=== PATIENT | female | born 1960 | race Caucasian/White ===

== ENCOUNTER 2020-02-29 11:26 | Outpatient (CLI) | payer BC, SELFPAY ==
--- NOTE | 2020-02-29 08:45 | DI.RAD_ITS ---
EXAM: XR SHOULDER LT COMPLETE 2+V CLINICAL HISTORY: eval L shoulder pain, h/o surgery. TECHNIQUE: 2D digital imaging was performed. COMPARISON: No exams were available for comparison FINDINGS: BONES: No acute fracture is present. No bony destructive lesion is seen. Mild spurring is seen at th e greater tuberosity. JOINTS: No dislocation present. There is mild spurring at the AC joint and undersurface of the acromi on.The glenohumeral joint space is well maintained and shows no significant degenerative changes. SOFT TISSUE: Normal. No tendon or joint space calcifications are seen. IMPRESSION: Mild degenerative changes.. DATA REPOSITORY: RADIATION DOSE DELIVERED:
--- NOTE | 2020-02-29 08:45 | DI.RAD_ITS ---
EXAM: XR SHOULDER RT COMPLETE 2+V INDICATION: eval R shoulder pain, h/o surgery. COMPARISON: CR XR SHOULDER LT COMPLETE 2+V from 02/29/2020 TECHNIQUE: 2D digital imaging was performed. FINDINGS: Metallic anchors are noted in the humeral head related to previous rotator cuff repair. The humeral head is high riding, articulating with the undersurface of the acromion. There is significant spurr ing of the undersurface of the acromion and thinning of the acromion. There is spurring at the great er tuberosity as well as lesser tuberosity. There is there are degenerative changes of the glenohume ral joint with prominent spurring at the humeral head. The AC joint shows shows spurring at the acro mion.. IMPRESSION: Advanced degenerative changes and chronic rotator cuff tear. Previous surgery. DATA REPOSITORY: RADIATION DOSE DELIVERED:
== END 2020-02-29 11:46 ==
PROVIDERS: Visit Provider Student in an Organized Health Care Education/Training Program
DX: M25.512 Pain in left shoulder (principal); M25.511 Pain in right shoulder; M19.011 Primary osteoarthritis, right shoulder; M75.101 Unspecified rotator cuff tear or rupture of right shoulder, not specified as traumatic; M19.012 Primary osteoarthritis, left shoulder
CPT/HCPCS: 73030

== ENCOUNTER 2020-03-07 02:40 | Outpatient (CLI) | payer BC, SELFPAY ==
--- NOTE | 2020-03-07 11:20 | DI.MRI_ITS ---
EXAM: MR UPPER JOINT LT WO CLINICAL HISTORY: PAIN M25.512 PAIN LT SHOULDER. TECHNIQUE: Multiplanar multisequence MRI was performed. COMPARISON: CR XR SHOULDER RT COMPLETE 2+V from 02/29/2020 CR XR SHOULDER LT COMPLETE 2+V from 02/29/2020 FINDINGS: MR examination shoulder was performed according to the usual protocol. There is tiny quantity of fluid in the glenohumeral joint. There is a moderate-sized fluid collectio n in the subacromial subdeltoid bursa. Bones: Mild deformity of acromion, prior acromial spur removal indicated by history. Minimal undersu rface irregularity of the acromion, no gross impingement. Moderate hypertrophic change and abnormal signal at the acromioclavicular joint, minimal impingement on supraspinatus myotendinous junction reg ion. Mildly abnormal signal noted in greater tuberosity of the humerus adjacent to the supraspinatus footp rint, a small degenerative cyst is noted at this site. Articular cartilage: Mild to moderate thinning of glenohumeral articular cartilage noted. Glenoid la abdulkadir grossly intact by noncontrast criteria. Biceps tendon: Biceps tendon and anchor appear intact. Biceps tendon is normally placed in the bicip ital groove. Rotator cuff: Mildly abnormal signal in the distal supraspinatus, subscapularis, and infraspinatus te ndons consistent with tendinosis. Small focal undersurface tear at the lateral supraspinatus footpri nt, minimally displaced. No full-thickness tear or retraction of supraspinatus tendon. Rotator interval structures show normal signal. IMPRESSION: Mild tendinosis of supraspinatus, infraspinatus, and subscapularis tendon. Small lateral footprint s upraspinatus attachment tear, nondisplaced. Degenerative changes of the glenohumeral articular cartilage noted. Additional findings as described above. DATA REPOSITORY:
== END 2020-03-07 03:00 ==
PROVIDERS: Visit Provider Student in an Organized Health Care Education/Training Program
DX: M25.512 Pain in left shoulder (principal); M75.82 Other shoulder lesions, left shoulder; M75.102 Unspecified rotator cuff tear or rupture of left shoulder, not specified as traumatic; M25.412 Effusion, left shoulder; M19.012 Primary osteoarthritis, left shoulder
CPT/HCPCS: 73221

== ENCOUNTER 2020-08-12 08:34 | Outpatient (CLI) | payer BC, SELFPAY ==
[2020-08-14 10:49] LABS: SARS-CoV-2 RNA Not Detected (NotDetected); SARS-CoV-2 RNA Source Nasal/Nares
== END 2020-08-12 08:54 ==
PROVIDERS: Visit Provider Student in an Organized Health Care Education/Training Program
DX: Z11.59 Encounter for screening for other viral diseases (principal); Z01.818 Encounter for other preprocedural examination
CPT/HCPCS: U0003

== ENCOUNTER 2020-08-15 10:01 | Day surgery (SDC) | payer BC, SELFPAY ==
--- NOTE | 2020-07-25 14:02 | PDOC.ANES ---
Date of service: 07/25/20 Time of Service: 14:04 Anesthesia Note Report Anesthesia Note: Asked to review case by Eli for upcoming SHAHZAD. History of pulmonary fibrosis/SOB related to chemotherapy/radiation from Hodgkin lymphoma, CAD (60% LAD stenosis), and moderate aortic stenosis (JAYE 1.2 cm2) with mild AR and LVEF 69%. She [place] [facility] [place] (12 mg 0.75% bup, 1 attempt). Given that her cardiac and pulmonary issues have been stable, and she has had a recent SHAHZAD under spinal anesthesia without issue, she is an appropriate candidate for surgery at [facility].
--- NOTE | 2020-07-29 14:04 | PDOC.ANES ---
Date of service: 07/29/20 Time of Service: 14:04 Anesthesia Note Report Anesthesia Note: Request for chart review today from
--- NOTE | 2020-07-29 14:14 | PDOC.ANES ---
Date of service: 07/29/20 Time of Service: 14:14 Anesthesia Note Report Anesthesia Note: Request for preoperative anesthetic chart review by Dr. Fry on this patient for a date of surgery on 08/15/2020 due to a history of mitral valve prolapse and tachyarrhythmias. [place] [facility] [facility] charts I could not find her past cardiac history noted anywhere other than Dr. Fry's office note. No cardiovascular diagnostics such as ECHO or EKG were available either. Due to the lack of information I called the patient directly at her listed phone number. Per the patient she is seen by the cardiology group at [facility] and is seen annually by Dr. Rosa due to her mitral valve prolapse and issues with arrhythmias. The patient states she has been off of her heart medicine for four years now and stable. She is still seen and receives an annual echocardiogram. She reports that she is to be seen on 08/07/2020 for a preoperative cardiac consult with Dr. Rosa. The patient states she has had anesthesia before without cardiovascular problems, but does report a history of PONV. She stated that her during her last anesthetic they gave her a patch for antiemesis that worked well. I am assuming it was a scopolamine patch and will recommend it for the coming anesthetic. I am asking our preop nurse to reach out to Dr. Rosa's office to obtain the notes from the patients last visit and her most recent echocardiogram. I look forward to Dr. Rosa's consult.
--- NOTE | 2020-08-09 15:14 | PDOC.ANES ---
Date of service: 08/09/20 Time of Service: 15:14 Anesthesia Note Report Anesthesia Note: Received documentation from [facility] today from the patients August 07 visit. EF is 50-60%, MVP is present with mild mitral regurgitation. In the patients cardiologists opinion she is a good candidate for rotator cuff surgery. I feel that the patient is appropriate to continue based on this updated information.
[2020-08-15] VITALS (9 sets, daily range): BP systolic 83–120; BP diastolic 40–65; PULSE 68–84; RESP 12–18; TEMP 36.3–36.5; O2SAT 94–99
[2020-08-15] MEDS: Lactated Ringers 1,000 ML 100 ML IV (11:04)
[2020-08-15] MEDS: Scopolamine 1 MG/3 DAYS PATCH TD (11:13)
[2020-08-15] MEDS: ceFAZolin 2 GM/50 ML BAG IVPB (12:08)
[2020-08-15] MEDS: EPINEPHrine 1 MG/ML AMP pres-free (14:12)
[2020-08-15] MEDS: EPINEPHrine 30 MG/30 ML VIAL (14:12)
[2020-08-15] MEDS: Bupivacaine 0.25% Pres-Free 30 ML VIAL (14:12)
--- NOTE | 2020-08-15 15:02 | W.PM.DSUDISC ---
Discharge Plan Disposition Patient Disposition: HOME Condition: Stable Discharge Details Reason For Visit: Left shoulder surgery Attending Provider: Amandeep Fry Primary Care Provider: No,Local Home Meds and New Rx's Prescriptions: New aspirin 81 mg tablet,delayed release (DR/EC) 81 mg PO DAILY 14 Days Qty: 14 RF: 0 naproxen 250 mg tablet 250 - 500 mg PO BID PRN (Reason: Moderate pain or swelling) Qty: 60 RF: 0 ondansetron 4 mg tablet,disintegrating 4 mg PO Q6H PRN (Reason: nausea or vomiting) Qty: 5 RF: 0 oxycodone 5 mg tablet 5 - 10 mg PO Q4H PRN (Reason: moderate to severe pain) Qty: 22 RF: 0 Continued fluoxetine [Prozac] 20 mg capsule 20 mg PO DAILY RF: 0 albuterol sulfate 90 mcg/actuation aerosol powdr breath activated 1 inh IH ONCE RF: 0 fexofenadine 180 mg Tablet 180 mg PO DAILY RF: 0 cholecalciferol (vitamin D3) [Vitamin D3] 25 mcg (1,000 unit) Capsule 75 mcg PO DAILY RF: 0 lysine HCl 1,000 mg Tablet 3,000 mg PO BID RF: 0 Restasis 0.05 % Dropperette 1 drp OPHTHALMIC (EYE) Q12H RF: 0 Discontinued metaproterenol 650 mcg/actuation aerosol 650 mcg IH DAILY RF: 0 Discharge Instructions Additional Instructions: Surgery: Shoulder arthroscopy with rotator cuff repair, biceps tenodesis, extensive debridement, and subacromial decompression. Activity: You should keep your arm at your side in a neutral position at all times except for physical therapy. Do not try to lift or raise your arm using your own muscles. You should use the sling whenever you are out of the house. You may have to adjust the abduction pillow or remove it for comfort. At home it is best to remove the sling and rest the arm on a pillow at your side or support the operative side with your other hand. You may allow the arm to dangle at your side. A physical therapy prescription will be sent electronically to begin in 2-3 weeks. Prescriptions: Aspirin 81 mg take 1 daily to prevent a blood clot for 2 weeks Naproxen 250 mg take 1-2 every 12 hours with a meal as needed for moderate pain Oxycodone 5 mg take 1-2 every 4-6 hours as needed for severe pain You may use [id number] Tylenol (acetaminophen) as needed for mild pain. These pain medications may be taken all at once or in different combinations as needed. Ondansetron (Zofran) 4 mg take 1 orally dissolving tablet every 6 hours as needed for nausea or vomiting Also, recommend Colace (docusate) as a stool softener as surgery and pain medicine cause constipation. Dressings: Remove shoulder bandage after 3 days. Leave the sticky Steri-Strips in place until they fall off or remove them after you shower. Cover the incisions with Band-Aids or leave them open to air. The biceps bandage (inside upper arm) is glued on separately. You may leave this one on a few days longer if it is difficult to remove. There is also glue underneath this bandage that can be left in place until it peels off. You may shower after 5 days. Follow-up: 10-[address] Fry You may take off the leg compression stockings this evening at home. You may also leave them on a few days longer if you have a history of leg swelling or edema. Let us know right away if you develop any redness, drainage, fevers, chest pain, or trouble breathing. Do not drink alcohol or drive for at least 24 hours after anesthesia. Please call the office during business hours with any questions or concerns. Referrals: Amandeep Fry MD [ [facility] STAFF PHYSICIAN] - Discharge Orders Discharge Orders: Discharge Order (Routine); Ordered 08/15/20 Ordered By: Amandeep Fry DS: Diagnosis Discharge Diagnosis (1) Impingement syndrome, shoulder, left: Status: Acute (2) Arthritis of left acromioclavicular joint: Status: Acute (3) Tendinitis of long head of biceps brachii of left shoulder: Status: Acute (4) Bursitis of left shoulder: Status: Acute (5) Left rotator cuff tear: Status: Acute
--- NOTE | 2020-08-15 15:20 | ROE_ITS ---
Date of service: 08/15/20 Time of Service: 15:02 Operative Note Operative Note DATE OF PROCEDURE: 08/15/20 PRE-OP DIAGNOSIS: Left: 1. Rotator cuff tear 2. LHB tendinopathy 3. Bursitis 4. Impingement 5. AC joint arthritis POST-OP DIAGNOSIS: same PROCEDURE: Left: 1. Rotator cuff repair, CPT# 99465. This involved repair of the subscapularis and supraspinatus using anchors and sutures to reattach the rotator cuff back to the footprint of the lesser and greater tuberosity. 2. Open biceps tenodesis, CPT# 78516. This involved reattaching the long head of the biceps tendon to the proximal humerus in the sub-pectoral area of the bicipital groove at the correct tension. 3. Extensive debridement, CPT# 18614. This involved using arthroscopic hand instruments, power instruments, and radiofrequency instruments to release to release the long head of the biceps tendon and debride areas of labral tearing, partial articular rotator cuff tearing, synovitis, and chondromalacia about the lessor tuberosity within the glenohumeral joint anteriorly, superiorly and posteriorly. 4. Subacromial decompression with partial acromioplasty, CPT# 31764. This involved using arthroscopic power instruments and a radiofrequency wand to complete a bursectomy and remove bone spurs on the undersurface of the acromion. 5. Arthroscopic distal clavicle excision, CPT# 61373. This involved arthroscopically exposing the underside of the acromioclavicular joint, smoothing out bone spurs, and using a vahid to remove approximately 5 mm of the distal clavicle so there was no bone left engaging the acromion. The speech language pathology assistant was medically required in order to help assist in techniques above, which require positioning the arm, holding the arthroscope, and manipulating multiple instruments and sutures at the same time. This cannot be done without the help of an experienced speech language pathology assistant. SURGEON: Amandeep Fry RESOURCE AGENT: Bertrand Mora ANESTHESIA: GETA and regional ESTIMATED BLOOD LOSS: 10 PATHOLOGY: none sent Patient's condition: stable Implants: Arthrex: 4.75mm SwiveLocks x 2 and unicortical Proximal Biceps Tenodesis Button Indications: The patient was diagnosed with the above conditions and appropriately indicated for surgical intervention. Please see complete medical record for details. Findings: Exam under anesthesia: Full symmetrical range of motion with no significant instability or increased laxity Glenohumeral joint: Preserved articular cartilage humeral head and glenoid. Mild anterior, moderate superior, and mild posterior synovitis. Moderately sized partial-thickness subscapularis upper portion tearing with mild retraction. Mild long head of biceps injection moderate surrounding synovitis and SLAP tear. Intact articular sided infraspinatus. Moderate fraying articular sided supraspinatus without exposed footprint. Subacromial space: Mild bursitis. Moderate undersurface acromion irregularities secondary to previous acromioplasty. Mild impinging inferiorly distal clavicle acromion joint. Concealed central lateral approximately 1 x 1 cm partial bursal supraspinatus tear. Intact infraspinatus. Procedure Description: In the operating room, general anesthesia was induced. Bilateral shoulders were examined. The patient was positioned in the beachchair position. All bony prominences were well-padded. Preoperative antibiotics were administered. The shoulder was prepped and draped in the usual sterile fashion. The correct patient, procedure, and side of the procedure were all verified prior to incision. Starting through the posterior portal a standard complete diagnostic arthroscopy was performed of the glenohumeral joint including inspection of the long head of the biceps, anterior and superior labrum, subscapularis tendon, supraspinatus and infraspinatus tendons, and axillary recess. The glenoid and humeral head c artilage as well as the posterior labrum were inspected from an anterior viewing portal. Significant findings and interventions noted above. The lesser tuberosity footprint was prepared using hand and power instruments for tendon healing. A rigid cannula was inserted anteriorly. The biceps tendon was prepared for all arthroscopic tenodesis with subscapularis repair using a loop n tack technique. The biceps tendon was released from the superior labrum using arthroscopic scissors. The sutures did not exhibit excellent pullout strength and removed from the tendon and the biceps was compressed retracting the long head biceps distally. The arm was positioned in neutral. Using a 1 portal technique, a suture lasso was used to pass a suture tape fiber link through the lateral and superior subscapularis. This stitch was used for traction and passing of a fiber tape more medially and centrally in the subscapularis tendon body. The punch was used to localize placement of the anchor. Both sutures were passed through the anchor eyelet and the anchor was brought down to the bone with the sutures tensioned appropriately. The arm was brought through full external rotation demonstrating no restricted motion due to the repair and secure fixation of the tendon and anchor to bone. Starting through the posterior portal, the arthroscope was directed into the subacromial space. A lateral 50 yard line lateral portal was created. A combination of power instruments and a radiofrequency ablator were used to debride bursitis anteriorly, posteriorly, and laterally as well as expose and smooth bone spurring on the undersurface of the acromion. The coracoacromial ligament was minimally released. The bursectomy was completed viewing laterally and working from posteriorly and the rotator cuff was thoroughly inspected with findings noted above. The anterior portal was redirected towards the undersurface of the AC joint. A shaver and electrocautery device were used to clear soft tissue from the undersurface of the AC joint. A vahid was then inserted and used to remove the distalmost 5 mm of the distal clavicle and coplaning the adjacent acromion. Care was taken to alternate between working through the anterior portal and viewing through the anterior portal to ensure that proper amount of bone was removed and there was no engaging bone left behind especially superiorly. Cannulas were inserted at the superior posterior lateral margin of the acromion and lateral 50 yard line portal. The rotator cuff tear was inspected, elevated, and debrided of frayed tissue starting at the lateral most margin of the greater tuberosity centrally exposing a moderately sized bursal supraspinatus tear. The tear was debrided to a stable margin on all sides anteriorly, medially, and posteriorly. The rotator cuff was probed and mobilized confirming there is no further extension in any direction. The cuff grasper could easily reduce the good tissue quality bursal tendon over the greater tuberosity. The greater was tuberosity cleared of fibrous tissue over the exposed footprint and the bursectomy was extended laterally. A self retrieving suture passer was used to pass a fiber tape stitch in an inverted horizontal mattress fashion followed by a suture tape fiber loop placed centrally and medially in a ripstop fashion. The rotator cuff tear was provisionally reduced using the rigid cannula laterally. A punch was used to localize placement of the single lateral row anchor. Both ends of the fiber tape in the FiberLink were loaded to swivel lock anchor which was inserted into bone with appropriate tension on the rotator cuff. The repair was inspected through shoulder range of motion and found to be stable with secure fixation. The shoulder was drained of arthroscopic fluid. All portal sites were copiously irrigated. 10 cc of 0.25% bupivacaine with epinephrine was infiltrated about a 2 to 3 cm longitudinal incision at the inferior margin of the pectoralis major localized over the long head of the biceps tendon. Blunt and sharp dissection were used to expose the tendon in the bicipital groove. The tendon was brought out of the wound and kept off the skin on top of a blue towel. The correct location for sub-pectoral fixation was localized, prepped with a rasp, and then drilled with a 3.2 mm drill pin in a unicortical fashion. Using a fiber loop suture the tendon was prepped from the musculotendinous junction a few centimeters proximal. The excess tendon was amputated. The free suture ends were then passed through the unicortical button implant. The drill pin was removed and the implant was placed into the humeral intramedullary canal. The button was flipped and the sutures were tensioned bringing the tendon down to bone. Tension and fixation were then tested and found to be appropriate. The free suture ends were brought on either side of the tendon and were tied compressing tendon to bone. The wound was copiously irrigated with normal saline. Subcutaneous tissue was closed using 3-0 Monocryl in a buried interrupted fashion. Skin was closed using 3-0 Monocryl in a buried subcuticular running fashion. Skin glue was applied over the incision. Mastisol was applied about the incision. The incision was covered with Telfa, gauze, and covered with a Tegaderm dressing. These incisions were closed using 3-0 Monocryl in a buried fashion, covered with Mastisol, Steri-Strips, Xeroform, dry gauze, and ABDs. The dressings were covered and secured with Medipore tape. The operative extremity was placed into a sling for immobilization. The patient awoke from anesthesia without complication and was transferred to the recovery room in a stable condition.
== END 2020-08-15 17:22 | disposition home or self-care (01) ==
PROVIDERS: Visit Provider Student in an Organized Health Care Education/Training Program
PROC: (CPT 29827; principal; 2020-08-15 11:00)
PROC: (CPT 23430; 2020-08-15 11:00)
DX: M75.42 Impingement syndrome of left shoulder (principal); M19.012 Primary osteoarthritis, left shoulder; M75.22 Bicipital tendinitis, left shoulder; M75.52 Bursitis of left shoulder; M75.112 Incomplete rotator cuff tear or rupture of left shoulder, not specified as traumatic; S43.432A Superior glenoid labrum lesion of left shoulder, initial encounter; X58.XXXA Exposure to other specified factors, initial encounter; M65.812 Other synovitis and tenosynovitis, left shoulder; G89.18 Other acute postprocedural pain
CPT/HCPCS: 29827; 29823; 29824; 29826; 23430; C1713; 76942; J0171; J0690; J1100; J1885; J2001; J2250; J2370; J2405; J2704

== ENCOUNTER 2020-09-18 10:19 | Outpatient (CLI) | payer BC, SELFPAY ==
--- NOTE | 2020-09-18 09:15 | DI.RAD_ITS ---
EXAM: XR FOOT LT COMPLETE CLINICAL HISTORY: acute fall. TECHNIQUE: 2D digital imaging was performed. COMPARISON: No exams were available for comparison FINDINGS: There is an oblique fracture in the distal half of the 5th meta carpal with minimal displacement. No radiopaque foreign body. No osseous lesion. No other fractures identified in the foot. IMPRESSION: Fifth metatarsal fracture. DATA REPOSITORY: RADIATION DOSE DELIVERED:
--- NOTE | 2020-09-18 09:30 | DI.RAD_ITS ---
EXAM: XR SHOULDER LT COMPLETE 2+V CLINICAL HISTORY: acute fall. TECHNIQUE: 2D digital imaging was performed. COMPARISON: CR XR SHOULDER RT COMPLETE 2+V from 02/29/2020 FINDINGS: There is no evidence of fracture or dislocation. There appears to be a tenodesis site in the proxima l diaphysis of the humerus, probably biceps tendon tenodesis. No soft tissue calcifications. No ost eophytes in the glenohumeral joint. Some degenerative change in the AC joint noted. No osseous lesi ons. IMPRESSION: Biceps tenodesis site. No other significant radiographic findings although the subacromial space kim s appears slightly diminished in height. DATA REPOSITORY: RADIATION DOSE DELIVERED:
== END 2020-09-18 10:39 ==
PROVIDERS: Visit Provider Physician Assistant Surgical
DX: S92.352A Displaced fracture of fifth metatarsal bone, left foot, initial encounter for closed fracture; Z87.828 Personal history of other (healed) physical injury and trauma
CPT/HCPCS: 73030; 73630

== ENCOUNTER 2020-10-16 15:41 | Outpatient (CLI) | payer BC, SELFPAY ==
--- NOTE | 2020-10-16 15:15 | DI.RAD_ITS ---
EXAM: XR FOOT LT COMPLETE CLINICAL HISTORY: F/u. TECHNIQUE: 2D digital imaging was performed. COMPARISON: CR XR FOOT LT COMPLETE from 09/18/2020 FINDINGS: Again noted is the previously described oblique fracture in the distal half of the 5th metatarsal. A ppearance is unchanged but there is no further displacement. No radiopaque foreign body. No additio nal fractures evident. IMPRESSION: DATA REPOSITORY: RADIATION DOSE DELIVERED:
== END 2020-10-16 16:01 ==
PROVIDERS: Visit Provider Student in an Organized Health Care Education/Training Program
DX: S92.352A Displaced fracture of fifth metatarsal bone, left foot, initial encounter for closed fracture (principal)
CPT/HCPCS: 73630

== ENCOUNTER 2020-11-13 11:20 | Outpatient (CLI) | payer BC, SELFPAY ==
--- NOTE | 2020-11-13 10:45 | DI.RAD_ITS ---
EXAM: XR FOOT LT COMPLETE INDICATION: f/u. COMPARISON: CR XR FOOT LT COMPLETE from 09/18/2020 CR XR FOOT LT COMPLETE from 10/16/2020 TECHNIQUE: 2D digital imaging was performed. FINDINGS: There has been no change in alignment of the distal 5th metatarsal fracture. No new abnormalities ar e seen. DATA REPOSITORY: RADIATION DOSE DELIVERED:
== END 2020-11-13 11:21 | disposition home or self-care (01) ==
LOC: DIORS 11:20
PROVIDERS: Visit Provider Student in an Organized Health Care Education/Training Program
DX: S92.352A Displaced fracture of fifth metatarsal bone, left foot, initial encounter for closed fracture (principal)
CPT/HCPCS: 73630

== ENCOUNTER 2020-12-25 12:00 | Outpatient (CLI) | payer BC, SELFPAY ==
--- NOTE | 2020-12-25 11:17 | DI.RAD_ITS ---
EXAM: XR FOOT LT COMPLETE CLINICAL HISTORY: L foot fx. TECHNIQUE: 2D digital imaging was performed. COMPARISON: CR XR FOOT LT COMPLETE from 11/13/2020 FINDINGS: The fracture site in the distal half of the 5th metatarsal exhibits minimal change. Fracture line is still evident. No further displacement but no prominent callus formation evident. No new additiona l fractures evident. Generalized osteopenia in the bones of the foot is noted. Lisfranc joint appears unremarkable. Some degenerative changes again noted in the great toe metatars ophalangeal joint. IMPRESSION: DATA REPOSITORY: RADIATION DOSE DELIVERED:
--- NOTE | 2020-12-25 11:17 | DI.RAD_ITS ---
EXAM: XR SHOULDER LT COMPLETE 2+V CLINICAL HISTORY: F/U RTC repair. TECHNIQUE: 2D digital imaging was performed. COMPARISON: CR XR SHOULDER LT COMPLETE 2+V from 09/18/2020 FINDINGS: No evidence of fracture or dislocation. A biceps tenodesis site in the proximal diaphysis of the hum erus is again noted. No obvious osseous abnormality at this level. No obvious degenerative narrowin g of the glenohumeral joint. However, there are multiple small degenerative subarticular cysts at th e level the greater tuberosity. No calcifications noted in the subacromial space. Some degenerative changes again noted in the AC fritz int. Coracoid process appears intact. No ominous osseous lesions. IMPRESSION: DATA REPOSITORY: RADIATION DOSE DELIVERED:
== END 2020-12-25 12:01 | disposition home or self-care (01) ==
LOC: DIORS 12:00
PROVIDERS: Visit Provider Physician Assistant
DX: M75.102 Unspecified rotator cuff tear or rupture of left shoulder, not specified as traumatic (principal); M19.012 Primary osteoarthritis, left shoulder; S92.352G Displaced fracture of fifth metatarsal bone, left foot, subsequent encounter for fracture with delayed healing
CPT/HCPCS: 73030; 73630

== ENCOUNTER 2021-01-01 02:37 | Outpatient (CLI) | payer BC, SELFPAY ==
[2021-01-01 11:02] LABS: Source Nasal/Nares
[2021-01-01 14:53] LABS: COVID-19 PCR Negative (Negative)
== END 2021-01-01 02:38 | disposition home or self-care (01) ==
LOC: LBO 02:37
PROVIDERS: Visit Provider Student in an Organized Health Care Education/Training Program
DX: Z20.822 Contact with and (suspected) exposure to COVID-19 (principal); Z01.818 Encounter for other preprocedural examination
CPT/HCPCS: 87635

== ENCOUNTER 2021-01-03 06:15 | Day surgery (SDC) | payer BC, SELFPAY ==
[2021-01-03] VITALS (11 sets, daily range): BP systolic 72–108; BP diastolic 31–63; PULSE 68–80; RESP 8–20; TEMP 36.3–36.8; O2SAT 94–99
[2021-01-03] MEDS: Lactated Ringers 1,000 ML 100 ML IV (06:52)
[2021-01-03] MEDS: ceFAZolin 2 GM/50 ML BAG IVPB (07:28)
--- NOTE | 2021-01-03 09:15 | DI.RAD_ITS ---
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 Fry during open reduction and internal fixation of 5th metata rsal fracture. Hard copy show plate and screw fixation in place. Fluoro time, 16.3 seconds. IMPRESSION: RADIATION DOSE DELIVERED: Total DLP
--- NOTE | 2021-01-03 10:00 | ROE_ITS ---
Date of service: 01/03/21 Time of Service: 08:00 Operative Note Operative Note DATE OF PROCEDURE: 01/03/21 PRE-OP DIAGNOSIS: Left fifth metatarsal shaft nonunion POST-OP DIAGNOSIS: same PROCEDURE: Left fifth metatarsal nonunion takedown and ORIF, CPT# 03193 SURGEON: Amandeep Fry INTELLIGENCE OPERATIONS SPECIALIST: Abbey Luna ANESTHESIA TYPE: Local By Surgeon and General LMA/ETT Refer to Anesthesia Record ESTIMATED BLOOD LOSS: 10 TOURNIQUET TIME: 0 COMPLICATIONS: None Patient was transported to: PACU Patient's condition: stable Implants: Synthes condylar 2.0 mm plate with 4x 2.0 locking screws and 1x 2.0 cortex screw Indications: Please see complete medical record for details. Findings: Atrophic nonunion. Extremely poor bone quality. Procedure Description: In the operating room, general anesthesia was induced. The patient was positioned supine on the operating room table. All bony prominences were well-padded. Preoperative antibiotics were administered. The left foot was prepped and draped in the usual sterile fashion. The correct patient, procedure, and side of the procedure were all verified prior to incision. 20 cc of 0.5% bupivacaine was infiltrated about the planned lateral approach to the fifth metatarsal fracture site. Sharp dissection followed by careful spreading was used to approach the bone anterior laterally taking care to protect neurovascular structures and tendons, which were retracted anteriorly and posteriorly. The fracture site was encountered at the far distal metatarsal shaft and exposed with minimal healing tissue present. Careful dissection was used to freshen the bone ends of the nonunion and remove the minimal amount of fibrinous material more medially using scalpel and rongeur. Small curette was used to recanalize proximally and distally. The incision was extended slightly distally to accommodate for the distal extent of the fracture exposing the cartilage of the metatarsal head at the MTPJ. There was a small defect at the fracture site laterally and superiorly that was packed with PLIA demineralized bone matrix, which was also used to add biology to this nonunion. A combination of traction and direct manipulation of the metatarsal and phalangeal was used to restore length and hold reduction of the fracture site. The bone quality was too soft to permit clamp fixation or initial lag screw. Various plate options were were checked, but the distal nature of the fracture and small amount of working bone necessitated use of the smallest 2.0 mm plate. In order to have some fixation, locking plate was used and the appropriate condylar plate was pre-bent at the T portion to accommodate the distal aspect of the metatarsal and cut to length allowing 3 screws proximal to the fracture site. The plate was provisionally held on the bone taking care to keep the plate as distal as reasonable but avoiding the MTPJ or cartilage while allowing fixation distally and proximally. Fluoroscopy used to confirm appropriate fracture reduction and plate placement. The plate was then compressed to the proximal shaft using cortex compression screw just proximal to the fracture site. The plate was then slightly adjusted and rotated and a bicortical locking screw placed just proximal. An additional 2 locking screws were placed bicortically through the locking guide distally and then the last locking screw most proximally in a similar fashion. All locking screws were final tightened. The initial cortex screw was tested and had minimal fixation strength so it was change for cortex screw a millimeter longer which successfully engaged the far cortex as opposed to redrilling in the locking hole and make an additional violations of the bone. Final AP lateral oblique fluoroscopy confirmed appropriate fracture reduction and hardware placement. The construct was tested manually and with bone clamp and demonstrated rather impressive stability given the limited fixation and soft bone. The wound was copiously irrigated with normal saline. Deep tissues were reapproximated over the plate and the subcutaneous tissue was closed using using 3-0 Monocryl in a buried interrupted fashion. 3-0 nylon was used to close the skin, which was covered with Xeroform, gauze, and the foot wrapped in sterile soft roll. A posterior short leg plaster splint was then applied maintaining the foot in neutral position. The patient awoke from anesthesia without complication and was transferred to the recovery room in a stable condition.
--- NOTE | 2021-01-03 13:36 | PDOC.DSDIS_ITS ---
Discharge Plan Disposition Patient Disposition: HOME Condition: Stable Discharge Details Reason For Visit: Left foot surgery Attending Provider: Amandeep Fry Primary Care Provider: ,Local Home Meds and New Rx's Prescriptions: New aspirin 81 mg tablet,delayed release (DR/EC) 81 mg PO DAILY 14 Days Qty: 14 RF: 0 naproxen 250 mg tablet 250 - 500 mg PO BID PRN (Reason: Moderate pain or swelling) Qty: 60 RF: 0 oxycodone 5 mg tablet 5 - 10 mg PO Q4H PRN (Reason: moderate to severe pain) Qty: 12 RF: 0 Continued fluoxetine [Prozac] 20 mg capsule 20 mg PO DAILY RF: 0 fexofenadine 180 mg Tablet 180 mg PO DAILY RF: 0 cholecalciferol (vitamin D3) [Vitamin D3] 25 mcg (1,000 unit) Capsule 5,000 unit PO DAILY RF: 0 lysine HCl 1,000 mg Tablet 3,000 - 8,000 mg PO BID RF: 0 Restasis 0.05 % Dropperette 1 drp OPHTHALMIC (EYE) Q12H RF: 0 naproxen 250 mg tablet 250 - 500 mg PO BID PRN (Reason: Moderate pain or swelling) Qty: 60 RF: 0 calcium tjq-ebq-M1-Zn-endoscopy technician-annia [phone] uh-ji-qtei-mg Tablet 2 tab PO DAILY RF: 0 mometasone 200 mcg/actuation Hfa Aerosol Inhaler 1 puff INHALATION HS RF: 0 albuterol sulfate 90 mcg/actuation Hfa Aerosol Inhaler 2 puff INHALATION PRN PRNRF: 0 Discharge Instructions Additional Instructions: Surgery: Left fifth metatarsal nonunion takedown and ORIF with bone grafting Activity: Nonweightbearing in splint. Heel weightbearing okay. May rest foot on ground for stance or balance. Recommend ice and elevation to minimize swelling and discomfort. Encourage daily range of motion all toes to help circulation. A physical therapy prescription will be provided separately in the office at follow-up if needed. Prescriptions: Aspirin 81 mg take 1 daily to prevent a blood clot for 2 weeks Naproxen 250 mg take 1-2 every 12 hours with a meal as needed for moderate pain Oxycodone 5 mg take 1-2 every 4-6 hours as needed for severe pain You may use kzlj-yvv-gfixnmu Tylenol (acetaminophen) as needed for mild pain. These pain medications may be taken all at once or in different combinations as needed. Also, recommend Colace (docusate) as a stool softener as surgery and pain medicine cause constipation. Dressings: Leave splint and dressing in place until follow-up. Keep clean and dry at all times. Follow-up: 10-14 days with an orthopedic physician television production assistant and then [address] Fry. Transition to CAM walker boot for protected weightbearing after initial postop. No x-rays needed until follow-up with Dr. Fry. Let us know right away if you develop any redness, drainage, fevers, chest pain, or trouble breathing. Do not drink alcohol or drive for at least 24 hours after anesthesia. Please call the office during business hours with any questions or concerns. Stand Alone Forms: Anesthesia Discharge Inst., Scopolamine Skin Patch Referrals: Amandeep Fry MD [ [facility] STAFF PHYSICIAN] - Discharge Orders Discharge Orders: Discharge Order (Routine); Ordered 01/03/21 Ordered By: Amandeep Fry DS: Diagnosis Discharge Diagnosis (1) Fracture of 5th metatarsal: Status: Acute
== END 2021-01-03 14:00 | disposition home or self-care (01) ==
PROVIDERS: Visit Provider Student in an Organized Health Care Education/Training Program
PROC: (CPT 28322; principal; 2021-01-03 07:30)
DX: S92.352K Displaced fracture of fifth metatarsal bone, left foot, subsequent encounter for fracture with nonunion (principal); X58.XXXA Exposure to other specified factors, initial encounter
CPT/HCPCS: 28322; 73620; J0131; J0690; J1100; J1200; J1885; J2001; J2250; J2405

== ENCOUNTER 2021-02-19 11:43 | Outpatient (CLI) | payer BC, SELFPAY ==
--- NOTE | 2021-02-19 11:15 | DI.RAD_ITS ---
Exam(s) XR FOOT LT COMPLETE EXAM: XR FOOT LT COMPLETE CLINICAL HISTORY: FOLLOW UP. TECHNIQUE: 2D digital imaging was performed. COMPARISON: CR XR FOOT LT COMPLETE from 12/25/2020 FINDINGS: There has been open reduction internal fixation the previously described 5th metatarsal fracture. Th ere is now a lateral fixation plate across this fracture site with satisfactory alignment and less ev ident fracture line. No hardware loosening. No radiographic evidence of osteomyelitis. IMPRESSION: DATA REPOSITORY: RADIATION DOSE DELIVERED:
== END 2021-02-19 11:44 | disposition home or self-care (01) ==
LOC: DIORS 11:43
PROVIDERS: Visit Provider Student in an Organized Health Care Education/Training Program
DX: S92.352D Displaced fracture of fifth metatarsal bone, left foot, subsequent encounter for fracture with routine healing (principal)
CPT/HCPCS: 73630

== ENCOUNTER 2021-04-02 09:57 | Outpatient (CLI) | payer BC, SELFPAY ==
--- NOTE | 2021-04-02 09:30 | DI.RAD_ITS ---
Exam(s) XR FOOT LT COMPLETE EXAM: XR FOOT LT COMPLETE CLINICAL HISTORY: f/u. TECHNIQUE: 2D digital imaging was performed. COMPARISON: CR XR FOOT LT COMPLETE from 02/19/2021 FINDINGS: Generalized osteopenia in the foot is again noted. No acute fractures nor diastasis of the Lisfranc joint. There is a lateral fixation plate again noted across what appears to be a healed fracture of the 5th metatarsal. No loosening of the hardware. No radiographic evidence of osteomyelitis. IMPRESSION: DATA REPOSITORY: RADIATION DOSE DELIVERED:
== END 2021-04-02 09:58 | disposition home or self-care (01) ==
LOC: DIORS 09:57
PROVIDERS: Visit Provider Student in an Organized Health Care Education/Training Program
DX: M85.872 Other specified disorders of bone density and structure, left ankle and foot (principal)
CPT/HCPCS: 73630

== ENCOUNTER 2022-09-21 16:17 | Outpatient (REF) | payer BC, SELFPAY ==
[2022-09-21 15:43] LABS: Abs Immature Grans 0.01 10^3/uL (0.0-0.06); Absolute Basophil Count 0.06 10^3/uL (0.0-0.2); Absolute Eosinophil Count 0.22 10^3/uL (0.0-0.7); Absolute Lymphocyte Count 1.45 10^3/uL (1.2-3.4); Absolute Monocyte Count 0.31 10^3/uL (0.1-0.8); Absolute Neutrophil Count 2.81 10^3/uL (1.2-6.7); Basophils % 1.2; Eosinophils % 4.5; HCT 42.7 % (36.0-46.0); HGB 14.3 g/dL (11.2-15.7); Immature Grans % 0.2; Lymphocytes % 29.8; MCH 31.4 pg (27.0-33.0); MCHC 33.5 % (32.0-36.0); MCV 94 fL (80-95); MPV 10.8 fL (8.0-11.0); Monocytes % 6.4; Neutrophils % 57.9; Platelet Count 255 10^3/uL (130-400); RBC 4.55 10^6/uL (3.93-5.22); RDW 12.7 % (11.7-14.6); RDW-SD 44.1 fL; WBC 4.86 10^3/uL (4.4-10.8)
[2022-09-21 16:10] LABS: ALT 37 U/L (14-59); AST 25 U/L (15-37); Albumin 3.7 g/dL (3.4-5.0); Alkaline Phosphatase 81 U/L (46-116); Anion Gap 5.3 mmol/L (3-11); BUN 23 mg/dL (7-18); Bilirubin, Total 0.4 mg/dL (0.2-1.0); CO2 29.7 mmol/L (21.0-32.0); CREATININE 0.8 mg/dL (0.55-1.02); Calcium 9.7 mg/dL (8.5-10.1); Calculated LDL 136 mg/dL (<100); Chloride 105 mmol/L (98-107); Cholesterol 249 mg/dL (<200); Estimated GFR 82.23 (mL/min/1.73m2); Glucose 85 mg/dL (74-106); HDL Cholesterol 102 mg/dL (40-60); Potassium 4.4 mmol/L (3.5-5.1); Sodium 140 mmol/L (136-145); TSH 2.91 uIU/mL (0.36-3.74); Triglyceride 58 mg/dL (<150)
[2022-09-21 16:23] LABS: Hemoglobin A1C 5.6 % (<5.7)
[2022-09-21 22:43] LABS: T3, Total 98 ng/dL (97-169)
== END 2022-09-21 16:18 | disposition home or self-care (01) ==
LOC: LBN 16:17
PROVIDERS: Visit Provider Nurse Practitioner Family
DX: Z13.29 Encounter for screening for other suspected endocrine disorder (principal); Z13.0 Encounter for screening for diseases of the blood and blood-forming organs and certain disorders involving the immune mechanism; Z13.1 Encounter for screening for diabetes mellitus; Z13.220 Encounter for screening for lipoid disorders
CPT/HCPCS: 80053; 80061; 83036; 84439; 84443; 84480; 85025

== ENCOUNTER 2023-03-18 09:38 | Outpatient (CLI) | payer BC, SELFPAY ==
--- NOTE | 2023-03-18 09:08 | DI.RAD_ITS ---
Exam(s) XR HAND LT LIMITED EXAM: XR HAND LT LIMITED CLINICAL HISTORY: painful cyst. TECHNIQUE: 2D digital imaging was performed. COMPARISON: No exams were available for comparison FINDINGS: Two views-AP and lateral: No evidence of acute fracture or dislocation. No radiopaque foreign body. No osseous lesions. Ther e are degenerative changes evident at the articulation between the distal scaphoid and the trapezium- trapezoid bones. Mild degenerative changes at the 1st carpometacarpal joint. There are moderate degenerative changes at the DIP joints of the 2nd and 4th fingers. IMPRESSION: Degenerative changes in the wrist. Also at the DIP joints as described above. DATA REPOSITORY: RADIATION DOSE DELIVERED:
== END 2023-03-18 09:39 | disposition home or self-care (01) ==
LOC: DIORS 09:38
PROVIDERS: PCP Family Medicine; Referring Provider Family Medicine; Visit Provider Physician Assistant
DX: M19.031 Primary osteoarthritis, right wrist
CPT/HCPCS: 73120

== ENCOUNTER 2023-05-04 06:11 | Day surgery (SDC) | payer BC, SELFPAY ==
[2023-05-04 06:15] VITALS: BP 115/62; PULSE 65; RESP 18; TEMP 36.5; O2SAT 100
[2023-05-04 06:45] VITALS: BP 111/68; PULSE 62; RESP 18; TEMP 36.4; O2SAT 100
--- NOTE | 2023-05-04 07:19 | PDOC.DSDIS_ITS ---
Date of service: 05/04/23 Time of Service: 07:20 Discharge Plan Disposition Patient Disposition: Home Condition: Good Discharge Details Reason For Visit: Cyst Excision L Hand Attending Provider: Jesse Benitez Primary Care Provider: Adelso Urena Home Meds and New Rx's Prescriptions: Continued fluoxetine [Prozac] 20 mg capsule 20 mg PO DAILY B-complex with vitamin C Tablet 1 tab PO DAILY cyanocobalamin (vitamin B-12) 1,000 mcg tablet 1,000 mcg PO DAILY fexofenadine 180 mg Tablet 180 mg PO DAILY cholecalciferol (vitamin D3) [Vitamin D3] 25 mcg (1,000 unit) Capsule 5,000 unit PO DAILY lysine HCl 1,000 mg Tablet 3,000 - 8,000 mg PO BID cyclosporine [Restasis] 0.05 % Dropperette 1 drp OPHTHALMIC (EYE) Q12H mometasone 200 mcg/actuation Hfa Aerosol Inhaler 1 puff INHALATION HS albuterol sulfate 90 mcg/actuation Hfa Aerosol Inhaler 2 puff INHALATION PRN PRN Discharge Instructions Additional Instructions: Cyst Excision Discharge Instructions Activity: You may use the hand for light activities right away. Avoid rigorous use of the hand for the first week. Dressing/Cast: You may remove the dressing after 48 hours. You may get the i ncision wet and shower once removed. Medications: - You should take Tylenol and Ibuprofen for pain control. - You may apply ice over the hand. Follow-up: 7-10 days Referrals: Jesse Benitez MD [ [facility] STAFF PHYSICIAN] - Activity:: Activity as Tolerated Remove Dressings/Wound Care:: 48 hours Shower/Bathe:: 48 hours Diet:: As Tolerated Discharge Orders Discharge Orders: Discharge Order (Routine); Ordered 05/04/23 Ordered By: Bertrand Mora DS: Diagnosis Discharge Diagnosis (1) Ganglion cyst of tendon sheath of left hand: Status: Acute
[2023-05-04] MEDS: Lidocaine 1% Multi-Dose 10 ML VIAL (07:30)
[2023-05-04] MEDS: Sodium Bicarbonate 50 MEQ/50 ML VIAL (07:30)
--- NOTE | 2023-05-04 09:00 | W.PM.OP ---
Date of service: 05/04/23 Time of Service: 07:45 Operative Note Operative Note DATE OF PROCEDURE: 05/04/23 PRE-OP DIAGNOSIS: Left Index Finger Cyst POST-OP DIAGNOSIS: same (Left Index Finger Cyst of Tendon Sheath) PROCEDURE: Cyst Excision - Dorsal Left Index Finger, MCP Joint Region, ~1 cm SURGEON: Jesse Benitez ANESTHESIA TYPE: Local By Surgeon Refer to Anesthesia Record ESTIMATED BLOOD LOSS: 0 PATHOLOGY: none sent COMPLICATIONS: None Patient was transported to: same day Patient's condition: stable Indications: I have seen Rylee in clinic for symptoms of a cyst overlying the dorsal index finger extensor tendon. The mass persisted and caused pain to direct contact and with use. The diagnosis of a cyst was made. The symptoms had not responded to conservative measures. I discussed cyst excision with the patient. I reviewed the risks of the procedure to include, but not limited to, bleeding, infection, pain, stiffness, recurrence, damage to nerves or vessels. Despite these risks, the patient elected to proceed. Findings: There was a cyst of the extensor tendon just at the proximal end and under the extensor platt. The cyst was decompressed, capsule excised and synovectomy performed. Procedure Description: Rylee was greeted in the preoperative holding area where the correct side was identified and marked. The consent was reviewed with the patient and signed. All questions were answered. She was taken back to the operating room. The patient was placed into the supine position on the operating room table with the left arm on an arm table. All bony prominences were well padded. No prophylactic antibiotics were administered since this was a clean, elective hand surgical case. The left arm was then prepped with Chloraprep and draped in a standard fashion with stockinette and extremity drape. A timeout to confirm correct identity, side and site, procedure, allergies, anesthesia, and medical concerns was performed. A digital block was then performed using 1% lidocaine with epinephrine and buffered with sodium bicarbonate. This was allowed time to set up completely and was tested before proceeding with the case. A longitudinal incision was then made overlying the cyst. The skin was incised sharply. Full-thickness flaps were then elevated to expose the cyst. It then appeared that the majority of the cyst was underneath a deeper fascial layer adjacent to the extensor platt. This deeper layer was incised as was the proximal edge of the extensor platt by few millimeters. This then clearly expose the cyst. The cyst was deflated with normal expression of cystic fluid. The cyst capsule was then resected sharply as well as with a rongeur. Synovitis in this area was debrided. The finger was irrigated and once again checked to make sure that all components of the cyst were removed. The skin was then closed using a #4-0 nylon in interrupted fashion. The wound was dressed with Xeroform, 4 x 4, conformer dressing. The patient tolerated the procedure well and was returned to the Same Day Surgery area in a stable condition suffering no known complication.
== END 2023-05-04 07:56 | disposition home or self-care (01) ==
PROVIDERS: PCP Family Medicine; Visit Provider Student in an Organized Health Care Education/Training Program
PROC: (CPT 26160; principal; 2023-05-04 07:30)
DX: M67.844 Other specified disorders of tendon, left hand (principal); M67.442 Ganglion, left hand
CPT/HCPCS: 26116

== ENCOUNTER 2023-09-22 18:39 | Outpatient (REF) | payer MEDICARE, BC, SELFPAY ==
[2023-09-22 16:52] LABS: C Diff PCR Negative (Negative)
== END 2023-09-22 18:40 | disposition home or self-care (01) ==
LOC: LBN 18:39
PROVIDERS: PCP Family Medicine
DX: K52.9 Noninfective gastroenteritis and colitis, unspecified (principal)
CPT/HCPCS: 87329; 87493; 87177

== ENCOUNTER → 2023-10-18 10:47 | Outpatient (BNVA) | payer MEDICARE, BC, SELFPAY | PROVIDERS: PCP Family Medicine; Referring Provider Family Medicine; Visit Provider Student in an Organized Health Care Education/Training Program | DX: M67.442 Ganglion, left hand (principal) | CPT/HCPCS: 99212 ==

== ENCOUNTER 2023-11-18 17:12 | Outpatient (REF) | payer MEDICARE, BC, SELFPAY ==
[2023-11-18 20:41] LABS: Source Nasal/Nares
[2023-11-18 21:19] LABS: COVID-19 PCR Negative (Negative)
== END 2023-11-18 17:13 | disposition home or self-care (01) ==
LOC: NCHCN 17:12
PROVIDERS: PCP Family Medicine; Referring Provider Physician Assistant Medical; Visit Provider Physician Assistant Medical
DX: R05.9 Cough, unspecified (principal)
CPT/HCPCS: 87635